=== PATIENT | female | born 1975 | race Caucasian/White ===

== ENCOUNTER 2024-10-20 11:26 | Emergency (ER) | payer OTHER ==
[2024-10-20 11:47] VITALS: BP 126/70; PULSE 83; RESP 20; TEMP 98; BMI 21.7
[2024-10-20] MEDS ORDERED: ONDANSETRON *ODT* 4 MG TABLET ONE (12:36)
[2024-10-20] MEDS: ONDANSETRON *ODT* 4 MG TABLET SL ONE (12:43)
== END 2024-10-20 12:50 | disposition home or self-care (01) ==
LOC: JERFT 11:26
DX: S62.600D Fracture of unspecified phalanx of right index finger, subsequent encounter for fracture with routine healing (principal); X58.XXXA Exposure to other specified factors, initial encounter
CPT/HCPCS: 99283-25; Q0162